=== PATIENT | male | born 1970 | race Caucasian/White ===

== ENCOUNTER 2023-11-12 14:15 | Emergency (ER) | payer SELFPAY ==
[~2023-11-12] VITALS: Ht 180.3 cm; Wt 65.5 kg
[2023-11-12 14:37] VITALS: BP 128/79; PULSE 100; RESP 20; TEMP 98.9; O2SAT 95
== END 2023-11-12 15:40 | disposition left against medical advice (07) ==
LOC: MED 14:15
DX: F31.9 Bipolar disorder, unspecified (principal); F12.10 Cannabis abuse, uncomplicated; F10.10 Alcohol abuse, uncomplicated; I10 Essential (primary) hypertension; J45.909 Unspecified asthma, uncomplicated; F90.9 Attention-deficit hyperactivity disorder, unspecified type; Z76.0 Encounter for issue of repeat prescription; Z79.899 Other long term (current) drug therapy; Z88.5 Allergy status to narcotic agent; Y90.9 Presence of alcohol in blood, level not specified
CPT/HCPCS: 99281